=== PATIENT | female | born 1990 | race Caucasian/White ===

== ENCOUNTER 2019-02-24 12:08 | Emergency (ER) | payer MEDICAID ==
[~2019-02-24] VITALS: Ht 165.1 cm; Wt 60.3 kg
[2019-02-24 12:34] VITALS: BP 119/75
--- NOTE | 2019-02-24 12:34 | NUR ---
pt wheelchaired to room 12 by mindi hardy
--- NOTE | 2019-02-24 12:48 | NUR ---
29 Y FEMALE BIB SELF C/O BILAT ANKLE PAIN X1 DAY. PT REPORTS RUNNING AFTER HER DAD YESTERDAY WHEN HE FELL, AND THE PAIN STARTED AFTER. NO OBVIOUS DEFORMITY NOTED. PT STATES THE PAIN IS WORSE IN THE RIGHT ANKLE. CAP REFILL <3 SECONDS BILATERALLY AND +PEDAL PULSES. PT ALSO STATES SHE THINKS SHE MAY BE , LMP AUG 2018. TACHY AT 120. AAOX4. BED IS DOWN, LOCKED, BED RAIL X 1, ERMD TO SEE PT. HX: DEGENERATIVE DISC DISEASE RX: NONE
--- NOTE | 2019-02-24 12:49 | NUR ---
uses a walker currently for ankle pains
--- NOTE | 2019-02-24 13:40 | NUR ---
dr hart at bedside
[2019-02-24 14:53] LABS: BASOPHILS % (AUTO) 0.4 % (0.0-2.0); EOSINOPHILS % (AUTO) 0.3 % (0.0-4.0); HEMATOCRIT 37.6 % (36-48); HEMOGLOBIN 12.4 g/dL (12.0-16.0); LYMPHOCYTES # (AUTO) 0.8 K/uL (2.5-16.5); MEAN CORPUSCULAR HEMOGLOBIN 30 pg (27-31); MEAN CORPUSCULAR HGB CONC 33 g/dL (33-37); MEAN CORPUSCULAR VOLUME 90.1 fL (80-94); MONOCYTES # (AUTO) 1.1 K/uL (0.8-1.0); MONOCYTES % (AUTO) 9.6 % (1.7-9.3); NEUTROPHILS # (AUTO) 9.7 K/uL (1.8-7.7); NEUTROPHILS % (AUTO) 82.7 % (42.2-75.2); PLATELET COUNT (AUTO) 181 K/uL (140-450); RED BLOOD CELL COUNT(AUTO) 4.18 MIL/uL (4.20-5.40); RED CELL DISTRIBUTION WIDTH 14.1 % (11.6-13.7); WHITE BLOOD COUNT (AUTO) 11.7 K/uL (4.8-10.8)
[2019-02-24 14:55] LABS: APPEARANCE,URINE CLEAR (CLEAR); BILIRUBIN,URINE NEGATIVE (NEGATIVE); BLOOD, URINE NEGATIVE (NEGATIVE); COLOR,URINE YELLOW (YELLOW); LEUKOCYTE ESTERASE ,URINE NEGATIVE (NEGATIVE); NITRITE, URINE NEGATIVE (NEGATIVE); UGLUCOSE NEGATIVE (NEGATIVE)
[2019-02-24 15:03] LABS: BARBITURATE, URINE NEG. ng/ml (NEG <=200); BENZODIAZEPINE, URINE NEG. ng/mL (NEG <=200); CANNABINOID, URINE NEG. ng/mL (NEG <=50); COCAINE, URINE NEG. ng/mL (NEG <=300); OPIATE, URINE NEG. ng/mL (NEG <=2000); PHENCYCLIDINE SCREEN,URINE NEG. ng/mL (NEG <=25)
[2019-02-24 15:11] LABS: D-DIMER < 100 ng/ml (0-400)
[2019-02-24 15:13] LABS: CALCIUM OXALATE CRYSTALS,UR 0-10 /HPF (None Seen); RBC,URINE 0-5 /HPF (0-5); WBC,URINE 0-5 /HPF (0-5)
[2019-02-24 15:18] LABS: PROTHROMBIN TIME 9.9 secs (10.8-13.4)
--- NOTE | 2019-02-24 15:52 | NUR ---
PT DOES NOT WANT ANKLE STIRRUP OR CRUTCHES. PT CAME IN WITH WALKER AND WOULD LIKE TO CONTINUE USING THAT. JÚNIOR WRAP APPLIED TO BOTH FEET. AND RN MADE AWARE.
[2019-02-24 15:55] LABS: ALBUMIN 3.9 g/dL (3.4-5.0); ANION GAP 13.6 (8-16); CARBON DIOXIDE 27.1 mmol/L (21-32); CREATININE 0.8 mg/dL (0.6-1.3); MAGNESIUM 2.3 mg/dL (1.8-2.4); POTASSIUM 3.7 mmol/L (3.5-5.1); TOTAL BILIRUBIN 0.5 mg/dL (0.0-1.0)
[2019-02-24 16:05] LABS: URIC ACID 3.6 mg/dL (2.6-7.2)
--- NOTE | 2019-02-24 16:38 | NUR ---
PT GIVEN PHONE TO CALL [facility]
--- NOTE | 2019-02-24 16:38 | NUR ---
PT VERBALIZED UNDERSTANDING OF J[facility]NIOR CARE AFTER INSTRUCTIONS GIVEN FROM SKYLAR BEY. CAP REFILL <3 SECONDS BILATERALLY ON PT TOES.
[2019-02-24 16:41] VITALS: BP 126/78
--- NOTE | 2019-02-24 16:41 | NUR ---
Patient discharged with v/s stable. Written and verbal after care instructions given and explained. Patient alert, oriented and verbalized understanding of instructions. PT WHEELCHAIRED TO LOBBY. All questions addressed prior to discharge. ID band removed. Patient advised to follow up with PMD. Rx of VISATRIL AND MOTRIN given. Patient educated on indication of medication including possible reaction and side effects. Opportunity to ask questions provided and answered. PT GIVEN REFERRAL PACKET FOR [facility] AND MORE.
--- NOTE | 2019-02-24 16:42 | NUR ---
pt wheelchaired back to bed 12
--- NOTE | 2019-02-24 16:48 | NUR ---
PT VERBALIZES THAT SHE NOW WANTS THE CRUTCHES. FLORESITA EMT AT BEDSIDE FOR CRUTCH DEMONSTRATION
--- NOTE | 2019-02-24 16:48 | NUR ---
PROVIDED PT WITH ONE ON ONE INSTRUCTIONS ON CRUTCH USE. PT SHOWED PROPER USE OF CRUTCHES.
--- NOTE | 2019-02-24 16:52 | NUR ---
pt used crutches as ambulatory device to leave bed 12. pt waiting in lobby for mother to pickup
== END 2019-02-24 16:52 | disposition home or self-care (01) ==
LOC: MED 12:08
DX: S93.402A Sprain of unspecified ligament of left ankle, initial encounter (principal); S93.401A Sprain of unspecified ligament of right ankle, initial encounter; R44.3 Hallucinations, unspecified; F22 Delusional disorders; F15.10 Other stimulant abuse, uncomplicated; W19.XXXA Unspecified fall, initial encounter; Y93.02 Activity, running; Y92.89 Other specified places as the place of occurrence of the external cause; Y99.8 Other external cause status
CPT/HCPCS: 36415; 73610; 76830; 80053; 80305; 81001; 81025; 83735; 84550; 84702; 85025; 85379; 85610; 99284; Q0092

== ENCOUNTER 2022-01-05 22:45 | Emergency (ER) | payer MEDICAID ==
[~2022-01-05] VITALS: Ht 165.1 cm; Wt 56.7 kg
--- NOTE | 2022-01-05 23:16 | NUR ---
ermd assessing pt.
[2022-01-05 23:23] VITALS: BP 125/76
--- NOTE | 2022-01-05 23:36 | NUR ---
ermd aware of pt status.
--- NOTE | 2022-01-05 23:42 | NUR ---
pt reports she wants to follow up w her pcp and just wants discharge paperwork at this time because she doesnt want to wait and has family member waiting on her.
[2022-01-06] MEDS ORDERED: KETOROLAC 30 MG/ML VIAL IM ONE
[2022-01-06] MEDS ORDERED: IBUP-2218 PO
[2022-01-06] MEDS ORDERED: LORazepam 1 MG TAB PO ONE
[2022-01-06 00:59] VITALS: BP 125/76
--- NOTE | 2022-01-06 01:00 | NUR ---
Patient discharged with v/s stable by ermd. Written and verbal after care instructions given and explained. Patient alert, oriented and verbalized understanding of instructions. Ambulatory with steady gait. All questions addressed prior to discharge. ID band removed. Patient advised to follow up with PMD. Rx of ibuprofen 800mg po tid given. Patient educated on indication of medication including possible reaction and side effects. Opportunity to ask questions provided and answered.
[2022-01-06] MEDS ORDERED: KETOROLAC 30 MG/ML VIAL ONE (01:03)
[2022-01-06] MEDS ORDERED: LORazepam 1 MG TAB ONE (01:04)
== END 2022-01-06 01:12 | disposition home or self-care (01) ==
LOC: MED 22:45
DX: M54.50 Low back pain, unspecified (principal)
CPT/HCPCS: 81002; 81025; 96372; 99283; J1885

== ENCOUNTER 2022-03-29 02:29 | Emergency (ER) | payer MEDICAID ==
[~2022-03-29] VITALS: Ht 165.1 cm; Wt 56.7 kg
[~2022-03-29 02:29] MED LIST: IBUP-2218 PO
[2022-03-29 03:07] VITALS: BP 152/82
[2022-03-29] MEDS ORDERED: ACET-10509 PO (03:43)
[2022-03-29 03:49] VITALS: BP 114/70
== END 2022-03-29 03:49 | disposition home or self-care (01) ==
LOC: MED 02:29
DX: M25.579 Pain in unspecified ankle and joints of unspecified foot (principal)
CPT/HCPCS: 99282